=== PATIENT | male | born 1975 | race Caucasian/White ===

== ENCOUNTER → 2016-12-05 | Outpatient (CLI) | payer OTHER ==
[~2016-12-05] MED LIST: ASPIRIN325 MG PO; FLEXERIL 10 MG10 MG PO; IBUPROFEN800 MG PO; KEFLEX500 MG PO; OMEPRAZOLE40 MG PO; PERCOCET 10-321 EACH PO; PHENERGAN 25 MG25 M1 PO; PROCARDIA 10 MG10 MG PO; SYNTHROID 100100 MCG PO; TORADOL 10 MG T10 MG PO; VITAMIN C 500500 MG PO
[2016-12-05 12:11] LABS: HEMOGLOBIN 14.8 gm/dl (14.0-17.5); RED BLOOD COUNT 4.98 M/UL (4.20-5.50); WHITE BLOOD COUNT 6.1 K/UL (4.5-11.0)
[2016-12-05 12:26] LABS: BUN/CREATININE RATIO 13 (0-10)
== END ==
LOC: OPSV2 10:42
PROVIDERS: Podiatrist Foot & Ankle Surgery
DX: Z01.812 Encounter for preprocedural laboratory examination (principal); Z01.810 Encounter for preprocedural cardiovascular examination; S93.491A Sprain of other ligament of right ankle, initial encounter; M76.71 Peroneal tendinitis, right leg; I25.2 Old myocardial infarction; I10 Essential (primary) hypertension
CPT/HCPCS: 36415; 80048; 85027; 93005

== ENCOUNTER → 2016-12-11 | Day surgery (SDC) | payer OTHER | END | disposition home or self-care (01) | LOC: OR 06:23 | PROVIDERS: Podiatrist Foot & Ankle Surgery | PROC: 0YQK0ZZ Repair Right Ankle Region, Open Approach (ICD-10-PCS; 2016-12-11) | PROC: 0LQS0ZZ Repair Right Ankle Tendon, Open Approach (ICD-10-PCS; 2016-12-11) | PROC: 0SBF4ZZ Excision of Right Ankle Joint, Percutaneous Endoscopic Approach (ICD-10-PCS; principal; 2016-12-11 07:45) | DX: S93.491A Sprain of other ligament of right ankle, initial encounter (principal); M25.371 Other instability, right ankle; S86.311A Strain of muscle(s) and tendon(s) of peroneal muscle group at lower leg level, right leg, initial encounter; I10 Essential (primary) hypertension; I25.2 Old myocardial infarction; K21.9 Gastro-esophageal reflux disease without esophagitis; G89.29 Other chronic pain; M19.90 Unspecified osteoarthritis, unspecified site; Z82.49 Family history of ischemic heart disease and other diseases of the circulatory system; Z83.3 Family history of diabetes mellitus; Z79.899 Other long term (current) drug therapy; Z98.890 Other specified postprocedural states | CPT/HCPCS: 93005; J0171; J0690; J1100; J2250; J2405; J2765; J2795; J3010; J7120 ==

== ENCOUNTER 2021-04-02 08:05 | Emergency (ER) | payer OTHER ==
[2021-04-02 08:58] LABS: HEMOGLOBIN 14.2 gm/dl (14.0-17.5); RED BLOOD COUNT 4.58 M/UL (4.20-5.50); WHITE BLOOD COUNT 5.8 K/UL (4.5-11.0)
[2021-04-02 09:21] LABS: BUN/CREATININE RATIO 10 (0-10)
[2021-04-02 10:55] LABS: ADENOVIRUS F 40/41 Not Detected (Negative); ASTROVIRUS Not Detected (Negative); CLOSTRIDIUM DIFFICILE TOX A/B Not Detected (Negative); CRYPTOSPORIDIUM Not Detected (Negative); E.COLI 0157 Not Detected (Negative); ENTAMOEBA HISTOLYTICA Not Detected (Negative); ENTEROAGGREGATIVE E.COLI (EAEC Not Detected (Negative); ENTEROPATHOGENIC E.COLI (EPEC) Not Detected (Negative); ENTEROTOXIGENIC E.COLI (ETEC) Not Detected (Negative); GIARDIA LAMBLIA Not Detected (Negative); NOROVIRUS GI/GII Not Detected (Negative); PLESIOMONAS SHIGELLOIDES Not Detected (Negative); ROTOVIRUS A Not Detected (Negative); SALMONELLA Not Detected (Negative); SAPOVIRUS Not Detected (Negative); SHIG/ENTEROINVAS.ECOLI (EIEC) Not Detected (Negative); SHIGA-LIK TOX.PRO.E.COLI (STEC Not Detected (Negative); VIBRIO Not Detected (Negative); VIBRIO CHOLERAE Not Detected (Negative); YERSINIA ENTEROCOLITICA Not Detected (Negative)
[2021-04-02 12:43] LABS: CAMPYLOBACTER DETECTED (Negative)
[2021-04-02] MEDS ORDERED: AZITHROMYCIN500 MG PO (13:06)
[2021-04-02] MEDS ORDERED: ZOFRAN4 MG PO (13:06)
== END 2021-04-02 13:23 | disposition home or self-care (01) ==
LOC: ER1 08:05
PROVIDERS: Physician Assistant
DX: A04.5 Campylobacter enteritis (principal); K21.9 Gastro-esophageal reflux disease without esophagitis; I10 Essential (primary) hypertension; Z20.822 Contact with and (suspected) exposure to COVID-19
CPT/HCPCS: 80053; 85025; 87507; 96374; 99284; J2405; J7030; U0002